=== PATIENT | male | born 1965 | race Caucasian/White ===

== ENCOUNTER → 2017-06-28 | Outpatient (CLI) | payer BC ==
[~2017-06-28] VITALS: Ht 182.9 cm; Wt 97.5 kg
[~2017-06-28] MED LIST: ASPIRIN325 PO; ATORVASTATIN CA40 MG PO; BENICAR40 MG PO; PRINIVIL20 MG PO; TOPROL XL25 MG PO
--- NOTE | ~2017-06-28 | CATHLAB ---
[facility] [place] [address] INVASIVE PROCEDURE REPORT Name: JASONTREMAINE [id number] Admission: 06/28/17 Attend Phys: Jayesh De La Rosa, Discharge: Date of : 65 Date of Service: 06/28/17 1612 Report #: [id number] THIS REPORT FOR: //name// APPROVED REPORT Patient Details Patient Status: Out-Patient Room #: The patient is a 51 year-old male Event Personnel Jayesh De La Rosa Procedures Nurse, Maryam Wynne, Whit Lester Penny, Wes RN Procedures Performed Art Access - R femoral artery* Left Heart Cath w/or w/o Coronaries [id number] [facility] [id number] Initial Mod Sed Same Phys/QHP Gr5y [id number] Hemostasis w/ Mynx Procedure Narrative The patient was brought electively to the Cardiac Catheterization Laboratory and was prepped and draped in a sterile manner. The Right Groin^ was infiltrated with 1% Lidocaine subcutaneous anesthesia. A PINNACLE 6FR Sheath #[id number] sheath was inserted into the RFA^. Coronary angiography was performed using coronary diagnostic catheters. The right coronary system was accessed and visualized with a JR 4 catheter. The left coronary system was accessed and visualized with a JL 4 catheter. The left ventricle was accessed and visualized with a Pigtail catheter. Left ventricular/Aortic Valve gradient assessed via catheter pullback. Left ventriculogram was performed in PINTO projection. Closure device was deployed with a 6 Fr Mynx. The patient tolerated the procedure well and there were no complications associated with the procedure. There was no hematoma. Intraoperative Conscious Sedation Sedation start time: 11:03 Case end Time: 11:25 Fentanyl 25.0 mcg Versed 1.5 mg Fluoro Time: 1.58 minutes Dose: DAP 3730.10 cGycm2 455 mGy Contrast Type and Amount: Omnipaque 140 ml Diagnostic Cath Left Main Normal LAD Moderately long, tubular 30% proximal LAD stenosis. 40-50% mid [facility] [address] [place] [address] INVASIVE PROCEDURE REPORT Name: TREMAINE GOMEZ Room #: [facility].#: [id number] Admission: 06/28/17 Attend Phys: Jayesh De La Rosa, Discharge: Date of : 65 Date of Service: 06/28/17 1612 Report #: [id number] intrastent stenosis Diagonal 1 30-40% proximal D1 stenosis Circumflex 50-60% proximal circumflex stenosis prior to origin of single large bifurcating marginal branch OM1 Large, bifurcating. Mild plaquing Right Coronary Diffusely diseased co-dominant RCA. Tubular 50-60% intrastent mid RCA stensosis Long 50-60% distal intrastent RCA stenosis prior to PDA R PDA Moderate size PDA with mild plaquing RPLV Ectatic, moderate plaquing Left Ventriculography The left ventricle is normal in size with normal contractility. The left ventricular ejection fraction is estimated to be 60-65%. Left ventricular wall motion abnormalities are not present. There is no mitral insufficiency. Hemodynamics The aortic pressure is 167/75 mmHg with a mean of 114 mmHg. The left ventricular pressure is 181/0 mmHg with a mean of mmHg. The left ventricular end diastolic pressure is 23 mmHg. Conclusion 1. Normal global and regional systolic function. EF 65% 2. Normal left main 3. Moderate, diffuse 3v coronary artery disease Recommendations Aggressive Medical Therapy <ELECTRONICALLY SIGNED> By: Jayesh De La Rosa MD, FACC 06/28/171611 11 11 Jayesh De La Rosa MD, FACC /INF
--- NOTE | ~2017-06-28 | HC ---
[facility] [place] [address] CONSULTATION Name: TREMAINE GOMEZ Room #: REG [facility].#: [id number] Admission: 06/28/17 Attend Phys: Jayesh De La Rosa MD, Discharge: Date of : 65 Report #: [id number] THIS REPORT FOR: //name// CC: Jayesh Marie REASON FOR CONSULTATION: Chest pain. HISTORY OF PRESENT ILLNESS: The patient is a 51-year-old gentleman with a history of coronary artery disease with prior stenting of the right coronary and left anterior descending, remotely his history includes hypertension and dyslipidemia. Over the past month or so, he has had intermittent upper chest and jaw discomfort with flushing. A stress echocardiogram performed in late May demonstrated normal left ventricular systolic function with provocable ischemia. He is now admitted for coronary angiography. He denies heart failure symptoms including orthopnea, paroxysmal nocturnal dyspnea, or lower extremity edema. No history of near syncope or syncope. ALLERGIES: To IODINE. MEDICATIONS: Include aspirin, atorvastatin 40 mg daily, Toprol 25 mg daily, and lisinopril 20 mg daily. PAST MEDICAL HISTORY: Medical records have been reviewed and include a history of coronary artery disease, dyslipidemia, and carotid plaquing. SOCIAL HISTORY: He is a nonsmoker, he quit after a 19-cbxm-agcy smoking history in 2006. FAMILY HISTORY: Notable for mother who had a heart attack at 50, brother had a heart attack at young age. REVIEW OF SYSTEMS: All systems negative except as that noted above. PHYSICAL EXAMINATION: GENERAL: He is a pleasant gentleman, in no distress. VITAL SIGNS: Blood pressure is 160/90, heart rate of 50 and regular. He is 6 feet tall and 215 pounds. HEENT: There are neither xanthelasma, subcutaneous xanthomata, oral mucosal or digital cyanosis or kyphoscoliosis present. CHEST: Clear to auscultation and percussion. CARDIAC: Regular rate and rhythm with normal S1, S2. No murmurs or rubs. ABDOMEN: Soft and nontender. EXTREMITIES: Without cyanosis, clubbing, or edema. Radial pulses are 2+. NEUROLOGIC: He is alert with a nonfocal exam. LABORATORY DATA: HDL 46, LDL 81, triglycerides 164, total cholesterol 161. [address] [address] CONSULTATION Name: TREMAINE GOMEZ Room #: [facility]#: [id number] Admission: 06/28/17 Attend Phys: Jayesh De La Rosa MD, Discharge: Date of : 65 Report #: [id number] EKG, sinus bradycardia. Hemoglobin 15. Sodium 146, potassium 3.4, and creatinine 1.0. IMPRESSION: 1. Progressive chest pain, suspicious for angina. 2. Coronary artery disease with prior stenting of the LAD and right coronary arteries. 3. Hypertension. 4. Dyslipidemia. 5. Remote smoking history. 6. Family history of premature coronary artery disease. RECOMMENDATIONS: 1. Coronary angiography. 2. Continued efforts towards aggressive risk factor modification. The procedure was discussed in detail including its associated risks. After a thorough discussion of the procedure, its risks and alternatives and after answering his questions, he is agreeable to proceeding. <ELECTRONICALLY SIGNED> By: Jayesh De La Rosa MD, FACC 06/28/17 1635 0920 1031 Jayesh De La Rosa MD, FACC /nt
[2017-06-28 07:12] VITALS: BP 173/91
== END | disposition home or self-care (01) ==
LOC: CATH 06:48
DX: I25.10 Atherosclerotic heart disease of native coronary artery without angina pectoris (principal); I11.9 Hypertensive heart disease without heart failure; E78.00 Pure hypercholesterolemia, unspecified; I25.2 Old myocardial infarction; I48.91 Unspecified atrial fibrillation; Z87.891 Personal history of nicotine dependence; Z82.49 Family history of ischemic heart disease and other diseases of the circulatory system; Z95.5 Presence of coronary angioplasty implant and graft; Z91.041 Radiographic dye allergy status

== ENCOUNTER → 2019-08-20 | Outpatient (CLI) | payer BC | LOC: SJCVCIMAG 12:36 | DX: I08.2 Rheumatic disorders of both aortic and tricuspid valves (principal); R00.1 Bradycardia, unspecified; I25.10 Atherosclerotic heart disease of native coronary artery without angina pectoris; I10 Essential (primary) hypertension; E78.5 Hyperlipidemia, unspecified; I25.2 Old myocardial infarction; Z79.82 Long term (current) use of aspirin; Z79.899 Other long term (current) drug therapy; Z87.891 Personal history of nicotine dependence; Z95.5 Presence of coronary angioplasty implant and graft ==

== ENCOUNTER → 2020-11-16 | Outpatient (CLI) | payer OTHER | LOC: ULTRA 09:07 | PROVIDERS: ATTEND Nurse Practitioner | DX: M79.89 Other specified soft tissue disorders (principal); M79.661 Pain in right lower leg ==